=== PATIENT | male | born 1965 | race Caucasian/White ===

== ENCOUNTER 2021-08-01 21:16 | Emergency (ER) | payer SELFPAY ==
[2021-08-01 21:31] VITALS: BP 211/113; PULSE 75; RESP 18; TEMP 36.5; O2SAT 97
--- NOTE | 2021-08-01 21:43 | DI.CT.S_ITS ---
PROCEDURE: CT HEAD/BRAIN WO CON INDICATIONS: r/o trauma,erratic behavior,no known injury. TECHNIQUE: Noncontrast 4.5 mm thick angled axial sections acquired from the foramen magnum to the vertex, with coronal and sagittal reformats. For radiation dose reduction, the following was used: automated exposure control, adjustment of mA and/or kV according to patient size. COMPARISON: None. FINDINGS: Image quality: Excellent. CSF spaces: Basal cisterns are patent. No extra-axial fluid collections. Ventricles are normal in size and shape. Brain: No midline shift. No intracranial masses or hemorrhage. Blankenship-white matter interface is normal. Skull and face: Calvarium and visualized facial bones are intact, without suspicious lesions. Sinuses: Visualized sinuses and mastoids are clear. IMPRESSION: No evidence acute stroke, hemorrhage, or mass. Dictated by: Bebeto Zafar M.D. on 08/01/2021 at 22:07 Approved by: Bebeto Zafar M.D. on 08/01/2021 at 22:07
[2021-08-01 22:04] LABS: Add Manual Diff / Slide Review NO; Basophils Absolute Auto 0 /uL (0-100); Basophils Percent Auto 0.3 % (0-2); Eosinophils Absolute Auto 100 /uL (0-450); Eosinophils Percent Auto 1.6 % (2-4); Hematocrit 40.4 % (41-53); Hemoglobin 13.3 g/dL (13.5-17.5); Lymphocytes Absolute Auto 1700 /uL (1100-4500); Lymphocytes Percent Auto 29.4 % (25-40); Mean Corpuscular HGB Conc 32.9 % (30-36); Mean Corpuscular Hemoglobin 28.5 PG (26-34); Mean Corpuscular Volume 86.4 fL (80-100); Monocytes Absolute Auto 500 /uL (0-900); Monocytes Percent Auto 8.8 % (3-14); Neutrophils Absolute Auto 3400 /uL (1500-7000); Neutrophils Percent Auto 59.9 % (50-75); Platelet Count 169 X10^3/uL (150-400); Red Blood Cell Count 4.68 X10^6/uL (4.5-5.9); Red Cell Distribution Width 14.1 % (11.6-14.8); White Blood Cell Count 5.6 X10^3/uL (4.5-11.0)
[2021-08-01 22:11] LABS: UR Morphine/Opiate cutoff 300 Positive (Negative); Ur Creatinine 20 (Normal); Ur Specific Gravity 1.025 (Normal); Urine Amphetamines Positive (Negative); Urine Barbiturates Negative (Negative); Urine Benzodiazepines Negative (Negative); Urine Cocaine Negative (Negative); Urine MDMA Negative (Negative); Urine Methadone Negative (Negative); Urine Methamphetamines Positive (Negative); Urine Oxycodone Negative (Negative); Urine Phencyclidine Negative (Negative); Urine Tetrahydrocannabinol Positive (Negative); Urine Tricyclic Antidepressant Negative (Negative); Urine pH 5 (Normal)
[2021-08-01 22:12] VITALS: BP 208/118; PULSE 68; RESP 14; O2SAT 97
[2021-08-01 22:13] LABS: Alanine Aminotransferase 24 IU/L (<50); Albumin 4.5 g/dL (3.5-5.0); Albumin Globulin Ratio 1.2 (1.0-2.8); Alkaline Phosphatase 75 U/L (38-126); Aspartate Aminotransferase 36 IU/L (17-59); Bilirubin Total 0.2 mg/dL (0.2-1.3); Blood Urea Nitrogen 18 mg/dL (9-20); Calcium 9.7 mg/dL (8.4-10.2); Carbon Dioxide 34 mmol/L (22-32); Chloride 103 mmol/L (98-107); Estimated Glomerular Filt Rate > 60.0 mL/min (>60); Globulin 3.9 g/dL (1.7-4.1); Glucose 105 mg/dL (70-100); HEMOLYSIS < 15 (0-50); Sodium 144 mmol/L (137-145); Total Protein 8.4 g/dL (6.3-8.2)
[2021-08-01 22:35] LABS: Ethanol (ETOH) < 10 mg/dL
[2021-08-02 01:22] VITALS: BP 206/111; PULSE 76; RESP 16; O2SAT 97
[2021-08-02 05:38] VITALS: BP 175/103; PULSE 72; RESP 16; O2SAT 96
--- NOTE | 2021-08-02 06:26 | ED_ITS ---
HPI - General Adult General Chief complaint: Toxicology Problem Stated complaint: Intoxicated Time Seen by Provider: 08/02/21 03:18 Source: [facility] Mode of arrival: Ambulatory Limitations: language barrier History of Present Illness HPI narrative: 55-year-old gentleman who speaks mostly [place]ian but does understand [place]ron[place]. He was pulled over by police and felt to need medical care and was turned over to medics. On arrival in the emergency room he is somewhat somnolent and apparently at 3:00 a.m. this afternoon his neighbor gave him 2 white pills into brown pills because he ?sometimes hears voices?. Current medical diagnoses include hypertension. He states that he feels well and is unsure [facility] Related Data Allergies Allergy/AdvReac Type Severity Reaction Status Date / Time No Known Drug Allergies Allergy Verified 08/01/21 21:46 Review of Systems Review of Systems ROS Unobtainable: Unobtainable due to medical condition Patient History Medical History (Updated 08/02/21 @ 06:32 by Rehana Jade MD) Hypertension Social History Smoking Status: Current every day smoker Smoking Status: Current every day smoker Substance Use Type: unknown Exam Narrative Exam Narrative: General: Somewhat disheveled, in no acute distress. Somewhat disoriented unsure of where he is this morning HEENT: Moist mucous membranes, normal sclera with reactive pupils, Respiratory: Lungs are clear to auscultation, no wheezing no rales no rhonchi. Full and symmetrical air movement Cardiac: Regular rate and rhythm no murmurs no bruits Abdomen: Soft, nontender, good bowel tones, no flank pain Skin: Warm and dry, no rashes Neurologic: Grossly neurologically intact with no obvious asymmetries or abnormalities Extremities: No trauma, well perfused Psych: Confused, poor eye contact, speech is difficult to understand Initial Vital Signs Initial Vital Signs: Vital Signs Temperature 97.7 F 08/01/21 21:31 Pulse Rate 75 08/01/21 21:31 Respiratory Rate 18 08/01/21 21:31 Blood Pressure 211/113 H 08/01/21 21:31 Pulse Oximetry 97 08/01/21 21:31 Course Orders Ordered: ED Orders 08/01/21 21:43 CT head/brain wo con Stat 08/01/21 21:53 CBC Auto Diff [Complete Blood Count AUTO DIFF] Stat Comprehensive Metabolic Panel Stat Ethanol (ETOH) Stat Vital Signs Vital signs: Vital Signs - 8 hr 08/02/21 01:22 08/02/21 05:38 Pulse Rate 76 72 Respiratory Rate 16 16 Blood Pressure 206/111 H 175/103 H Pulse Oximetry 97 96 Medical Decision Making Lab Data Result diagrams: 08/01/21 21:53 08/01/21 21:53 Labs: Lab Results 08/01/21 08/01/21 08/01/21 Range/Units 21:04 21:53 21:53 WBC 5.6 (4.5-11.0) X10^3/uL RBC 4.68 (4.5-5.9) X10^6/uL Hgb 13.3 L (13.5-17.5) g/dL Hct 40.4 L (41-53) % MCV 86.4 (80-100) fL MCH 28.5 (26-34) PG MCHC 32.9 (30-36) % RDW 14.1 (11.6-14.8) % Plt Count 169 (150-400) X10^3/uL Neut % (Auto) 59.9 (50-75) % Lymph % (Auto) 29.4 (25-40) % [place] % (Auto) 8.8 (3-14) % Eos % (Auto) 1.6 L (2-4) % Baso % (Auto) 0.3 (0-2) % Neut # (Auto) 3400 (3005-4336) /uL Lymph # (Auto) 1700 (1339-0993) /uL [place] # (Auto) 500 (0-900) /uL Eos # (Auto) 100 (0-450) /uL Baso # (Auto) 0 (0-100) /uL Sodium 144 (137-145) mmol/L Potassium 4.0 (3.4-5.1) mmol/L Chloride 103 (98-107) mmol/L Carbon Dioxide 34 H (22-32) mmol/L BUN 18 (9-20) mg/dL Creatinine 0.90 (0.66-1.25) mg/dL Estimated GFR > 60.0 (>60) mL/min BUN/Creatinine Ratio 20.0 (6-22) Glucose 105 H (70-100) mg/dL Calcium 9.7 (8.4-10.2) mg/dL Total Bilirubin 0.2 (0.2-1.3) mg/dL AST 36 (17-59) IU/L ALT 24 (<50) IU/L Alkaline Phosphatase 75 (38-126) U/L Total Protein 8.4 H (6.3-8.2) g/dL Albumin 4.5 (3.5-5.0) g/dL Globulin 3.9 (1.7-4.1) g/dL Albumin/Globulin Ratio 1.2 (1.0-2.8) U Opiates 300ng/mL cut Positive H (Negative) Ur Oxycodone Screen Negative (Negative) Urine Methadone Screen Negative (Negative) Ur Barbiturates Screen Negative (Negative) U Tricyclic Antidepress Negative (Negative) Ur Phencyclidine Scrn Negative (Negative) Ur Amphetamines Screen Positive H (Negative) U Methamphetamines Scrn Positive H (Negative) Ur MDMA Scrn (Ecstasy) Negative (Negative) U Benzodiazepines Scrn Negative (Negative) Urine Cocaine Screen Negative (Negative) U Marijuana (THC) Screen Positive H (Negative) Ethyl Alcohol < 10 ( - 10) mg/dL MDM Narrative Medical decision making narrative: 55-year-old gentleman brought in after being found driving erratically. Alcohol level is 0 and opiates, marijuana and methamphetamine or found in his urine suggesting possible etiology of the 2 white pills and 2 brown pills given to him by his neighbor. He slept the majority of the evening in the emergency departm ent and when he is awoke this morning he is somewhat confused but otherwise is alert medically stable easily Roberto off the bed and walks to the bathroom to void. His gait is steady. He describes no specific issues today and would like to be discharged home and I feel that that is appropriate. Discharge Plan Departure Patient Disposition: Home Clinical Impression: Intoxication Instructions: DI for Substance Use Disorder Activity Restrictions/Additional Instructions: You were pulled over by police last night after driving erratically. They were concerned about your physical condition and medics brought you to the emergency room for further evaluation. Your blood work here was unremarkable. Urine test showed opiates, methamphetamine and marijuana. This combination can certainly explain the confusion and erratic behavior last night. You mentioned that you are given to white pills and 2 brown pills by youer neighbor. Would be a good idea to confirm what medications are and what they are supposed to fix prior to taking them. Opiates and methamphetamine can be very addictive even if you do not know what they are when you initially take them. If you feel that your having worsening symptoms or concerns, please return to ER
[2021-08-02 08:16] VITALS: BP 171/112; PULSE 64; RESP 18
== END 2021-08-02 09:15 | disposition home or self-care (01) ==
PROVIDERS: Emergency Provider Emergency Medicine
DX: F15.929 Other stimulant use, unspecified with intoxication, unspecified (principal); F11.90 Opioid use, unspecified, uncomplicated; F12.90 Cannabis use, unspecified, uncomplicated; R41.0 Disorientation, unspecified
CPT/HCPCS: 36415; 70450; 80053; 80305; 80320; 85025; 99284